=== PATIENT | male | born 1965 | race Caucasian/White ===

== ENCOUNTER 2016-08-28 19:00 | Emergency (ER) | payer SELFPAY ==
[~2016-08-28] VITALS: Ht 172.7 cm; Wt 80.0 kg
[2016-08-28] MEDS ORDERED: MORPHINE SULFATE 4 MG/ML CPJ (NOT FOR IM USE) IV STA (21:26)
[2016-08-28] MEDS ORDERED: KETOROLAC 30MG/ML VIAL IV STA (21:26)
[2016-08-28] MEDS ORDERED: DIAZEPAM 2 MG TABLET PO ONE (22:30)
[2016-08-29] MEDS ORDERED: MORPHINE SULFATE 4 MG/ML CPJ (NOT FOR IM USE) IV ONE
[2016-08-29 02:18] VITALS: BP 119/77
== END 2016-08-29 02:33 | disposition home or self-care (01) ==
LOC: ER 19:52
DX: M54.5 Low back pain (principal); C80.1 Malignant (primary) neoplasm, unspecified; W18.40XA Slipping, tripping and stumbling without falling, unspecified, initial encounter; Y93.89 Activity, other specified; Y92.89 Other specified places as the place of occurrence of the external cause; Y99.8 Other external cause status
CPT/HCPCS: 72131; 96374; 96375; 96376; 99284; J1885; J2270

== ENCOUNTER 2016-12-08 14:24 | Emergency (ER) | payer MEDICAID ==
[~2016-12-08] VITALS: Ht 177.8 cm; Wt 90.0 kg
[2016-12-08] MEDS ORDERED: SODIUM CHLORIDE 0.9% 1,000 ML IV ONE (14:37)
[2016-12-08 15:26] LABS: HEMATOCRIT. 42.9 % (42.0-52.0); MEAN CORPUSCULAR HEMOGLOBIN 27.1 pg (28.0-32.0); MEAN PLATELET VOLUME 7.3 fl (7.4-10.4); PLATELET 248 x1000/uL (130-400); RED BLOOD CELL COUNT 5.17 mill/uL (4.7-6.1); RED CELL DISTRIBUTION WIDTH 18.3 % (11.6-14.6)
[2016-12-08 15:35] LABS: CARBON DIOXIDE 30 mEq/L (21-32); CHLORIDE 101 mEq/L (98-107)
[2016-12-08 15:41] LABS: TROPONIN I < 0.02 ng/mL (0.00-0.04)
[2016-12-08 15:45] LABS: INR 0.9; PROTHROMBIN TIME 9.7 sec (9.4-11.6)
[2016-12-08] MEDS ORDERED: MORPHINE SULFATE 4 MG/ML CPJ (NOT FOR IM USE) IV ONE (16:00)
[2016-12-08] MEDS ORDERED: ONDANSETRON HCL 4MG/2ML VIAL IV ONE (16:00)
[2016-12-08 16:33] LABS: PLATELET ESTIMATE NORMAL
[2016-12-08 18:31] LABS: CLARITY URINE CLEAR (CLEAR); COLOR URINE YELLOW (YELLOW); GLUCOSE URINE NEGATIVE (NEGATIVE); KETONES URINE NEGATIVE (NEGATIVE); LEUKOCYTE ESTERASE URINE NEGATIVE (NEGATIVE); NITRITE URINE NEGATIVE (NEGATIVE); OCCULT BLOOD URINE NEGATIVE (NEGATIVE); PROTEIN URINE NEGATIVE (NEGATIVE); SPECIFIC GRAVITY URINE 1.013 (1.005-1.030); UROBILINOGEN URINE 0.2 E.U./dL (0.2-1.0)
[2016-12-08 20:01] VITALS: BP 124/81
== END 2016-12-08 20:17 | disposition home or self-care (01) ==
LOC: ER 14:24 → CANBEDREQ 22:07
DX: R55 Syncope and collapse (principal); E87.1 Hypo-osmolality and hyponatremia; C79.51 Secondary malignant neoplasm of bone; R11.0 Nausea; Z85.528 Personal history of other malignant neoplasm of kidney; Z92.21 Personal history of antineoplastic chemotherapy; Z90.49 Acquired absence of other specified parts of digestive tract
CPT/HCPCS: 36415; 71010; 80053; 81003; 83605; 83735; 83880; 84484; 85025; 85610; 87040; 87086; 93005; 96361; 96374; 96375; 99285; J2270; J2405; J7030; Z7610